=== PATIENT | female | born 1960 | race American Indian/Alaskan Native ===

== ENCOUNTER 2018-12-16 10:30 | Outpatient (CLI) | payer OTHER ==
--- NOTE | 2018-12-16 11:55 | XRay Report ---
BILATERAL WRISTS, 2 VIEWS INDICATION: Bilateral wrist pain. COMPARISON: None. IMPRESSION: No acute osseous or soft tissue abnormality. No significant DJD. Signer Name: Victor Manuel Omalley Jr, MD Signed: 12/16/2018 11:51 AM Workstation Name: [id number]
--- NOTE | 2018-12-16 11:57 | XRay Report ---
CERVICAL SPINE, 3 VIEWS INDICATION: PAIN IN NECK. COMPARISON: None. IMPRESSION: There is borderline bone mineralization. Normal alignment. Bridging anterior osteophytes are identified at C4-5 and C5-6 levels. Minimal disc space narrowing is identified at C5-6. The marilu ining disc levels are normal height. The facet joints and posterior elements are unremarkable. No ac [place] osseous or soft tissue abnormality. Signer Name: Victor Manuel Omalley Jr, MD Signed: 12/16/2018 11:53 AM Workstation Name: [id number]
--- NOTE | 2018-12-16 11:57 | XRay Report ---
LUMBOSACRAL SPINE, 3 VIEWS INDICATION: LOW BACK PAIN. COMPARISON: None. IMPRESSION: There is borderline bone mineralization. Normal alignment. Mild degenerative endplate ch anges are noted at all disc levels with no significant loss of disc height. There is mild to moderate diffuse facet arthropathy. Mild hypertrophic facet arthropathy is suspected at L3-4. The sacrum and SI joints are within normal limits. No acute osseous or soft tissue abnormality. Signer Name: Victor Manuel Omalley Jr, MD Signed: 12/16/2018 11:52 AM Workstation Name: [id number]
== END 2018-12-16 10:31 | disposition home or self-care (01) ==
LOC: XRAY 10:30
PROVIDERS: ATTEND Internal Medicine
DX: H53.8 Other visual disturbances (principal); I10 Essential (primary) hypertension; M79.89 Other specified soft tissue disorders; J40 Bronchitis, not specified as acute or chronic; M19.90 Unspecified osteoarthritis, unspecified site
CPT/HCPCS: 72040; 72100